=== PATIENT | female | born 1990 | race African-American/Black ===

== ENCOUNTER 2020-10-10 12:04 | Emergency (ER) | payer BC ==
--- NOTE | 2020-10-10 12:46 | EDM.PDOC ---
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 Reports symptoms began 3 days ago but worsened yesterday. She was seen at the [facility] yesterday diagnosed with a yeast infection. She was treated with a single dose of fluconazole and has a second pill that she is to take 3 days from the original. She reports that she has been using an [id number] itch cream with no relief. Perineal Area Pain Score (Numeric/FACES): 10 - Related Data Allergies Allergy/AdvReac Type Severity Reaction Status Date / Time No Known Allergies Allergy Verified 10/10/20 12:14 Home Meds: Home Meds Fluconazole 150 mg PO ASDIRECTED 10/10/20 [History] Hydrocortisone [Hydrocortisone 1% Crm] 28.4 gm TOP ASDIRECTED 4 Days #1 crm 10/10/20 [Rx] terbinafine HCL [Lamisil At] 12 gm TP BID #1 cream..g. 10/10/20 [Rx] Social & Family History - Tobacco Use Tobacco Use Status *Q: Never Tobacco User - Caffeine Use Caffeine Use: Reports: Coffee, Soda, Tea - Recreational Drug Use Recreational Drug Use: No ED ROS GENERAL - Review of Systems Review Of Systems: Comprehensive ROS is negative, except as noted in HPI. ED EXAM, RENAL/ - Physical Exam Exam: See Below General Appearance: Alert, WD/WN, No Apparent Distress Respiratory/Chest: No Respiratory Distress, Lungs Clear, Normal Breath Sounds, No Accessory Muscle Use, Chest Non-Tender Cardiovascular: Normal Peripheral Pulses (Female) Exam: Other (Mild excoriation of the labia minora and majora. No bleeding or open areas noted.) Neurological: Alert, Oriented, CN II-XII Intact, Normal Cognition, Normal Gait, Normal Reflexes, No Motor/Sensory Deficits Psychiatric: Normal Affect, Normal Mood Skin Exam: Warm, Dry, Intact, Normal Color, No Rash Course - Vital Signs Last Recorded V/S: Last Vital Signs Temp 98.9 F 10/10/20 12:17 Pulse 80 10/10/20 12:17 Resp 20 10/10/20 12:17 BP 143/83 H 10/10/20 12:17 Pulse Ox 100 10/10/20 12:17 - Re-Assessments/Exams Free Text/Narrative Re-Assessment/Exam: Patient is a 30-year-old female presenting to the emergency department with complaints of vaginal itching and burning for the last 3 days with worsening of symptoms yesterday. She was seen at the [facility] yesterday and diagnosed with a yeast infection. He received a single dose of fluconazole 150 mg yesterday and has a second pill that she has to take 3 days from the original. She reports continued itching and burning of the area. She has been using an [id number] itch cream with little relief. Review of the wet prep results from [facility] in the [facility] information site shows that she was positive for yeast but negative for clue cells and trichomonas indicating that she does indeed have a yeast infection. Discussed with patient that she did receive the appropriate treatment for yeast infection, however will take time for the perineal tissues to heal. I will send prescription for 1% hydrocortisone cream. Recommend using this 2 times daily. In between, she should use Lamisil cream. Recommend to avoid activities that would cause increased sweating and moisture to the area as this will further irritate the tissues. Discharge instructions as documented. Departure - Departure Time of Disposition: 12:42 Disposition: Home, Self-Care 01 Condition: Good Clinical Impression: Candidal vulvovaginitis - Discharge Information *PRESCRIPTION DRUG MONITORING PROGRAM REVIEWED*: No *COPY OF PRESCRIPTION DRUG MONITORING REPORT IN PATIENT STEVE: No Prescriptions: Hydrocortisone [Hydrocortisone 1% Crm] 28.4 gm TOP ASDIRECTED 4 Days #1 crm terbinafine HCL [Lamisil At] 12 gm TP BID #1 cream..g. Instructions: Vaginal Yeast Infection, Adult Referrals: Kalpana Rios MD [Primary Care Provider] - Forms: ED Department Discharge Additional Instructions: You were seen in the emergency department today for continued itching and burning to your perennial area after being diagnosed with yeast infection yesterday. As we discussed, you did receive the appropriate treatment, however it will take time for the perineal tissues to heal. Recommend that you take your second dose of fluconazole when it is due. We have sent prescription for hydrocortisone cream as well as Lamisil cream. Use these as prescribed. You may also try Benadryl [id number] to help with the itching. The symptoms should gradually improve over the next few days. If they fail to improve significantly by Monday, recommend follow-up in the clinic. If you experience any new or worsening symptoms, please do not hesitate to return to the emergency department for reevaluation. Sepsis Event Note (ED) - Evaluation Sepsis Screening Result: No Definite Risk
== END 2020-10-10 12:59 | disposition home or self-care (01) ==
LOC: JD.ED 12:04
DX: B37.3 Candidiasis of vulva and vagina (principal)
CPT/HCPCS: 99283